=== PATIENT | female | born 2000 | race Caucasian/White ===

== ENCOUNTER 2023-11-29 01:10 | Emergency (ER) | payer MEDICAID ==
[~2023-11-29] VITALS: Ht 162.6 cm; Wt 86.0 kg
[2023-11-29 01:22] VITALS: O2SAT 98
[2023-11-29] MEDS: ACETAMINOPHEN 325MG TABLET PO ONE (02:17)
[2023-11-29] MEDS: TETANUS, DIPHTHERIA, PERTUSSIS VAC/PF 0.5ML (>10YR OLD) IM ONE (02:17)
[2023-11-29 03:30] VITALS: BP 143/69; PULSE 81; RESP 19; TEMP 36.94740; O2SAT 99
== END 2023-11-29 03:40 | disposition home or self-care (01) ==
LOC: ER 01:10
DX: S09.90XA Unspecified injury of head, initial encounter (principal); V49.9XXA Car occupant (driver) (passenger) injured in unspecified traffic accident, initial encounter; Y93.89 Activity, other specified; Y92.89 Other specified places as the place of occurrence of the external cause; Y99.8 Other external cause status
CPT/HCPCS: 90471; 90715; 99291